=== PATIENT | female | born 1970 | race African-American/Black ===

== ENCOUNTER 2019-07-04 13:48 | Emergency (ER) | payer OTHER, SELFPAY ==
--- NOTE | 2019-07-04 15:13 | RAD ---
Exam:Left ankle 3 views HISTORY: Pain COMPARISON: None FINDINGS: Lateral and medial soft tissue swelling. Ankle mortise appears to be intact. No fracture. IMPRESSION: Soft tissue swelling, without fracture. Based on clinical finding and/or suspicion, follo w-up imaging in 7-10 days
[2019-07-04] MEDS ORDERED: traMADol HCl 50 MG TAB ONE (15:33)
== END 2019-07-04 15:50 | disposition home or self-care (01) ==
LOC: ERS 13:48
DX: M25.572 Pain in left ankle and joints of left foot (principal); F17.210 Nicotine dependence, cigarettes, uncomplicated; W22.8XXA Striking against or struck by other objects, initial encounter

== ENCOUNTER 2020-08-26 10:29 | Outpatient (CLI) | payer OTHER ==
--- NOTE | 2020-08-26 12:03 | RAD ---
RIGHT HAND 2 VIEWS: Date: 08/26/2020 AP and oblique view obtained. INDICATION: Disability exam. FINDINGS: Carpals unremarkable. Metacarpals and phalanges intact. MCP and IP joints unremarkable. No erosive ch trace. No significant osteoarthritic change. IMPRESSION: No acute findings. POS: [facility]
== END 2020-08-26 10:30 | disposition home or self-care (01) ==
LOC: BICRAD 10:29
PROVIDERS: ATTEND Internal Medicine
DX: Z02.71 Encounter for disability determination (principal)